=== PATIENT | female | born 1990 | race Caucasian/White ===

== ENCOUNTER 2020-12-25 20:24 | Emergency (ER) | payer OTHER ==
[~2020-12-25 20:24] MED LIST: PREDNISONE 50 M50 MG PO; ROBITUSSIN COU237 M2 PO; VENTOLIN HFA 66.7 GM INH
[2020-12-25 22:46] LABS: HEMOGLOBIN 14.1 gm/dl (12.3-15.3); RED BLOOD COUNT 4.82 M/UL (4.00-5.10); WHITE BLOOD COUNT 12.4 K/UL (4.5-11.0)
[2020-12-25 23:10] LABS: BUN/CREATININE RATIO 12 (0-10)
== END 2020-12-26 03:15 | disposition home or self-care (01) ==
LOC: ER1 20:24
PROVIDERS: Physician Assistant
DX: O20.0 Threatened abortion (principal); O99.331 Smoking (tobacco) complicating pregnancy, first trimester; F17.200 Nicotine dependence, unspecified, uncomplicated; O99.511 Diseases of the respiratory system complicating pregnancy, first trimester; J45.909 Unspecified asthma, uncomplicated; Z88.5 Allergy status to narcotic agent; Z91.018 Allergy to other foods; Z90.89 Acquired absence of other organs; Z3A.01 Less than 8 weeks gestation of pregnancy
CPT/HCPCS: 76830; 80053; 81001; 84702; 85025; 86900; 86901; 99284

== ENCOUNTER → 2021-01-04 | Day surgery (SDC) | payer OTHER ==
[~2021-01-04] MED LIST changes: +IBUPROFEN600 MG PO; +SINGULAIR10 MG PO
[2021-01-04 06:46] LABS: HEMOGLOBIN 13.5 gm/dl (12.3-15.3); RED BLOOD COUNT 4.5 M/UL (4.00-5.10); WHITE BLOOD COUNT 13.5 K/UL (4.5-11.0)
== END | disposition home or self-care (01) ==
LOC: OR 05:39
PROVIDERS: Obstetrics & Gynecology
DX: O02.1 Missed abortion (principal); J45.909 Unspecified asthma, uncomplicated; F17.210 Nicotine dependence, cigarettes, uncomplicated; Z88.5 Allergy status to narcotic agent; Z79.899 Other long term (current) drug therapy; Z20.822 Contact with and (suspected) exposure to COVID-19
CPT/HCPCS: 81001; 85025; J1100; J1885; J2001; J2250; J2405; J2704; J2795; J3010; J7120; U0002

== ENCOUNTER 2022-01-06 23:36 | Emergency (ER) | payer OTHER | END 2022-01-07 00:25 | disposition left against medical advice (07) | LOC: ER1 23:36 | DX: Z53.21 Procedure and treatment not carried out due to patient leaving prior to being seen by health care provider (principal) ==